=== PATIENT | male | born 1975 | race Caucasian/White ===

== ENCOUNTER 2018-01-12 14:06 | Emergency (ER) | payer OTHER ==
[~2018-01-12] VITALS: Ht 177.8 cm; Wt 181.4 kg
== END 2018-01-12 17:06 | disposition home or self-care (01) ==
LOC: ER 14:06
DX: R10.31 Right lower quadrant pain (principal)

== ENCOUNTER 2019-04-06 19:27 | Emergency (ER) | payer OTHER ==
[~2019-04-06] VITALS: Ht 177.8 cm; Wt 181.4 kg
== END 2019-04-07 04:57 | disposition home or self-care (01) ==
LOC: ER 19:27
DX: J06.9 Acute upper respiratory infection, unspecified (principal)

== ENCOUNTER 2019-04-11 09:38 | Outpatient (CLI) | payer OTHER | END 2019-04-11 09:50 | disposition home or self-care (01) | LOC: RAD 09:38 | DX: M25.562 Pain in left knee (principal) ==

== ENCOUNTER 2020-10-10 08:20 | Emergency (ER) | payer OTHER ==
[~2020-10-10] VITALS: Ht 152.4 cm; Wt 188.2 kg
== END 2020-10-10 13:51 | disposition home or self-care (01) ==
LOC: ER 08:20
DX: J03.90 Acute tonsillitis, unspecified (principal); Z20.822 Contact with and (suspected) exposure to COVID-19

== ENCOUNTER 2020-10-17 17:49 | Emergency (ER) | payer OTHER ==
[~2020-10-17] VITALS: Ht 177.8 cm; Wt 181.4 kg
== END 2020-10-18 | disposition home or self-care (01) ==
LOC: ER 17:49
DX: R10.13 Epigastric pain (principal); R11.11 Vomiting without nausea; Z98.84 Bariatric surgery status

== ENCOUNTER 2021-02-24 08:00 | Outpatient (CLI) | payer OTHER | END 2021-02-24 09:00 | disposition home or self-care (01) | LOC: LAB 08:00 | PROVIDERS: ATTEND Pediatrics | DX: Z20.822 Contact with and (suspected) exposure to COVID-19 (principal) ==

== ENCOUNTER 2022-11-18 08:13 | Outpatient (CLI) | payer OTHER | END 2022-11-18 08:36 | disposition home or self-care (01) | LOC: MRI 08:13 | PROVIDERS: ATTEND Surgery | DX: M13.861 Other specified arthritis, right knee (principal) | CPT/HCPCS: 73718 ==